=== PATIENT | male | born 1945 | race Two or more races ===

== ENCOUNTER 2022-05-05 14:47 | Outpatient (CLI) | payer OTHER | END 2022-05-05 15:27 | disposition home or self-care (01) | LOC: MRI 14:47 | PROVIDERS: ATTEND General Practice | DX: M54.2 Cervicalgia (principal) | CPT/HCPCS: 72141 ==

== ENCOUNTER → 2022-06-01 | Outpatient (CLI) | payer OTHER | END | disposition home or self-care (01) | LOC: RAD 11:37 | PROVIDERS: ATTEND Orthopaedic Surgery | DX: M25.551 Pain in right hip (principal); M25.552 Pain in left hip ==

== ENCOUNTER 2022-12-08 07:53 | Outpatient (CLI) | payer OTHER | END 2022-12-08 07:54 | disposition home or self-care (01) | LOC: NUCLEAR 07:53 | PROVIDERS: ATTEND General Practice | DX: M79.606 Pain in leg, unspecified (principal) ==

== ENCOUNTER 2022-12-15 10:37 | Outpatient (CLI) | payer OTHER | END 2022-12-15 10:49 | disposition home or self-care (01) | LOC: TOM 10:37 | PROVIDERS: ATTEND Orthopaedic Surgery | DX: M16.12 Unilateral primary osteoarthritis, left hip (principal) ==